=== PATIENT | male | born 1965 | race Caucasian/White ===

== ENCOUNTER 2021-04-17 00:54 | Emergency (ER) | payer BC ==
[2021-04-17 02:25] VITALS: BP 123/75; PULSE 67; TEMP 98; BMI 29.7
[2021-04-17] MEDS ORDERED: DIPHTH,PERTUSS(ACELL),TET 0.5 ML DISP.SYRIN IM ONE ×2 (02:39→03:02)
[2021-04-17] MEDS ORDERED: ACETAMINOPHEN 500 MG TABLET (FP) PO ONE (02:40)
[2021-04-17] MEDS ORDERED: ACETAMINOPHEN 325 MG TABLET (FP) ONE (03:01)
== END 2021-04-17 04:41 | disposition home or self-care (01) ==
LOC: JER 00:54
PROC: 0JQ10ZZ Repair Face Subcutaneous Tissue and Fascia, Open Approach (ICD-10-PCS; principal; 2021-04-17)
PROC: 3E0234Z Introduction of Serum, Toxoid and Vaccine into Muscle, Percutaneous Approach (ICD-10-PCS; 2021-04-17)
DX: S01.111A Laceration without foreign body of right eyelid and periocular area, initial encounter (principal)
CPT/HCPCS: 70450-TC; 90715; 99284-25

== ENCOUNTER 2022-08-14 01:12 | Emergency (ER) | payer BC, OTHER ==
[2022-08-14 01:26] VITALS: BP 146/87; PULSE 54; RESP 20; TEMP 97.3
[2022-08-14] MEDS ORDERED: LACTATED RINGERS SOLUTION 1000 ML INFUS.BAG IV ONE (02:24)
[2022-08-14 03:01] LABS: BASO % 0.3 % (0-2.0); HEMATOCRIT 41.5 % (35.4-49); HEMOGLOBIN 14.4 GM/dL (11.7-16.9); LYMPH % 13.9 % (8-40); MCH 29.5 pg (25.7-33.7); MCHC 34.6 g/dl (32.0-35.9); MEAN CELL VOLUME 85.2 fl (80-96); MEAN PLT VOLUME 7.6 fl (7.5-11.1); MONO % 7.3 % (3.8-10.2); NEUT % 77.5 % (42.8-82.8); PLATELET COUNT 201 10^3/uL (134-434); RBC 4.87 M/mm3 (4.00-5.60); WHITE BLOOD COUNT 10.3 K/mm3 (4.0-10.0)
[2022-08-14 03:20] LABS: CALCIUM 9.5 mg/dL (8.5-10.1)
[2022-08-14 03:21] LABS: ALBUMIN 3.7 g/dl (3.4-5.0); BLOOD UREA NITROGEN 13.4 mg/dL (7-18)
[2022-08-14 03:24] LABS: CREATININE 0.9 mg/dL (0.55-1.3)
[2022-08-14 03:26] LABS: BILIRUBIN,TOTAL 0.4 mg/dL (0.2-1); TOT PROT 6.8 g/dl (6.4-8.2)
[2022-08-14 03:46] LABS: EPI CELLS 1 /uL (0-25.1); HYALINE CASTS 1 /uL (0-3.1); URINE APPEARANCE CLEAR; URINE BACTERIA 4 /uL (0-1359); URINE BILIRUBIN NEGATIVE (NEGATIVE); URINE COLOR DK YELLOW; URINE GLUCOSE (UA) NEGATIVE (NEGATIVE); URINE KETONE TRACE (NEGATIVE); URINE LEUK ESTERASE NEGATIVE (NEGATIVE); URINE NITRITE NEGATIVE (NEGATIVE); URINE PROTEIN TRACE (NEGATIVE); URINE RBC 404 /uL (0-23.9); URINE UROBILINOGEN 0.2 mg/dL (0.2-1.0); URINE WBC 24 /uL (0-25.8)
== END 2022-08-14 08:40 | disposition home or self-care (01) ==
LOC: JER 01:12
DX: N20.0 Calculus of kidney (principal)
CPT/HCPCS: 36415; 74176-TC; 74177-TC; 80053; 81003; 85025; 87086; 99281-25; Q9967

== ENCOUNTER 2023-12-02 05:02 | Day surgery (SDC) | payer BC ==
[2023-11-29 09:34] VITALS: BMI 31.5
[2023-12-02 09:18] VITALS: RESP 18
[2023-12-02 11:24] VITALS: PULSE 66
[2023-12-02 11:42] VITALS: BP 104/59; TEMP 0
== END 2023-12-02 11:41 | disposition home or self-care (01) ==
LOC: JASU-ENDO 05:02
PROVIDERS: ATTEND Internal Medicine Gastroenterology
PROC: 0DBN8ZX Excision of Sigmoid Colon, Via Natural or Artificial Opening Endoscopic, Diagnostic (ICD-10-PCS; principal; 2023-12-02 10:00)
DX: Z12.11 Encounter for screening for malignant neoplasm of colon (principal)
CPT/HCPCS: 82962; 88305-TC